=== PATIENT | male | born 1980 | race Two or more races ===

== ENCOUNTER 2025-02-22 17:38 | Emergency (ER) | payer MEDICAID, OTHER ==
[~2025-02-22] VITALS: Ht 182.9 cm; Wt 81.8 kg
[2025-02-22 17:39] VITALS: BP 140/77; PULSE 106; RESP 18; TEMP 97.6; O2SAT 100
--- NOTE | 2025-02-22 18:53 | ED.PDOC ---
General HPI Comments 44-year-old male came to ER right testicular pain. Patient has been ex periencing right flank pains since yesterday, radiating to his right inguinal area, and down his right testicular area. Noted right testicular pain and swelling. Denies any dysuria or gross hematuria. Denies any recent trauma. Chief Complaint: Testicle Pain Time Seen by MD: 18:52 Reviewed notes: Nurses Notes Allergies: Coded Allergies: NO KNOWN ALLERGIES (Unverified , 02/22/25) Home Meds Active Scripts Gabapentin (Once-Daily) (Gabapentin) 300 Mg Tab, 300 MG PO Q6HP PRN, #60 TAB Prov:SOFÍA TESFAYE MD 02/22/25 Ciprofloxacin Hcl (Cipro) 250 Mg Tab, 250 MG PO BID for 10 Days, #20 TAB Prov:SOFÍA TESFAYE MD 02/22/25 Information Source: Patient Mode of Arrival: Ambulatory Severity: Moderate Inability to void: Moderate Timing: Hours Duration: Intermittent Has not urinated for: Minutes Prehospital treatment: None Onset: Spontaneous Location: (R) Flank Location male: R Scrotum associated signs and symptoms: Flank Pain Past Medical History PAST MEDICAL HISTORY: Denies Surgical History: Denies all surgeries Family History Family History: Reviewed,noncontributory to illness Social History Smoker: Non-Smoker Alcohol: Denies ETOH Use Drugs: Denies Drug Use Lives In: Home Constitutional: denies: chills, diaphoresis, fatigue, fever, malaise, sweats, weakness, others EENTM: denies: blurred vision, double vision, ear bleeding, ear discharge, ear drainage, ear pain, ear ringing, eye pain, eye redness, hearing loss, mouth pain, mouth swelling, nasal discharge, nose bleeding, nose congestion, nose pain, photophobia, tearing, throat pain, throat swelling, voice changes, others Respiratory: denies: cough, hemoptysis, orthopnea, SOB at rest, shortness of breath, SOB with excertion, stridor, wheezing, others Cardiovascular: denies: chest pain, dizzy spells, diaphoresis, Dyspnea on exertion, edema, irregular heart beat, left arm pain, lightheadedness, palpitations, PND, syncope, others Gastrointestinal: reports: abdominal pain; denies: abdomen distended, blood streaked bowels, constipated, diarrhea, dysphagia, difficulty swallowing, hematemesis, melena, nausea, poor appetite, poor fluid intake, rectal bleeding, rectal pain, vomiting, others Genitourinary: reports: flank pain (Right), testicle pain, testicle swelling; denies: burning, dysuria, frequency, hematuria, incontinence, penile discharge, penile sore, pain, urgency, others Neurological: denies: dizziness, fainting, headache, left sided numbness, left sided weakness, numbness, paresthesia, pre-existing deficit, right sided numbness, right sided weakness, seizure, speech problems, tingling, tremors, weakness, others Musculoskeletal: denies: back pain, gout, joint pain, joint swelling, muscle pain, muscle stiffness, neck pain, others Integumetry: denies: bruises, change in color, change in hair/nails, dryness, laceration, lesions, lumps, rash, wounds, others Allergic/Immunocompromised: denies: Difficulty Healing, Frequent Infections, Hives, Itching, others Hematologic/Lymphatic: denies: anemia, blood clots, easy bleeding, easy bruising, swollen glands, others Endocrine: denies: excessive hunger, excessive sweating, excessive thirst, excessive urination, flushing, intolerance to cold, intolerance to heat, unexplained weight gain, unexplained weight loss, others Psychiatric: denies: anxiety, bipolar disorder, depression, hopeless, panic disorder, schizophrenia, sleepless, suicidal, others Physical Exam General Appearance: No Apparent Distress, Normal HEENT: Normal ENT Inspection, Pharynx Normal, TMs Normal Neck: Full Range of Motion, Non-Tender, Normal, Normal Inspection Respiratory: Chest Non-Tender, Lungs Clear, No Accessory Muscle Use, No Respiratory Distress, Normal Breath Sounds Cardiovascular: No Edema, No JVD, No Murmur, No Gallop, Normal Peripheral Pulses, Regular Rate/Rhythm Breast Exam: Deferred Gastrointestinal: No Organomegaly, Non Tender, No Pulsatile Mass, Normal Bowel Sounds, Soft Genitalia: Deferred Pelvic: Deferred Rectal: Deferred Extremities: No calf tenderness, Normal capillary refill, Normal inspection, Normal range of motion, Non-tender, No pedal edema Musculoskeletal : Apperance: Normal Neurologic: Alert, biomedical instrument technician II-XII nml as Tested, No Motor Deficits, Normal Affect, Normal Mood, No Sensory Deficits Cerebellar Function: Normal Reflexes: Normal Skin: Dry, Normal Color, Warm Lymphatic: No Adenopathy Was a procedure done? Was a procedure done?: No Differential Diagnosis Kidney stone (Female): N/A Kidney stone (Male): Pyelonephritis, Renal failure, Urinary obstruction, Urolithiasis, Urinary tract infection Urinary Problem (Male): Urethritis, Urinary Retention, Urolithiasis, UTI X-Ray, Labs, Meds, VS Vital Signs Date Time Temp Pulse Resp B/P (MAP) Pulse Ox O2 Delivery O2 Flow Rate FiO2 02/22/25 17:39 97.6 106 18 140/77 100 97.6 Lab Test 02/22/25 19:12 02/22/25 19:04 Range/Units Urine Color Yellow Yellow Urine Clarity Clear Clear Urine pH 8.0 5.0-9.0 Urine Specific [place] 1.034 1.001-1.035 Urine Protein 1+ H Negative Urine Ketones 1+ H Negative Urine Blood Negative Negative /uL Urine Nitrite 2+ H Negative Urine Bilirubin Negative Negative Urine Urobilinogen 3 H Negative mg/dL Urine Leukocyte Esterase 1+ Negative /uL Urine RBC 3 0 - 3 /hpf Urine Microscopic WBC 25 H 0-3 /HPF Urine Squamous Epithelial Cells None seen <5 /hpf Urine Bacteria Few H None Seen /hpf Urine Mucus Few None Seen Urine Glucose Normal Normal mg/dL White Blood Count 19.1 H 4.4-10.8 10^3/uL Red Blood Count 5.26 4.5-5.90 10^6/uL Hemoglobin 15.7 13.5-17.5 g/dL Hematocrit 45.7 41.0-53.0 % Mean Corpuscular Volume 86.9 80.0-100.0 fL Mean Corpuscular Hemoglobin 29.8 28.0-32.0 pg Mean Corpuscular Hemoglobin Concent 34.3 32.0-36.0 g/dL Red Cell Distribution Width 14.5 H 11.8-14.3 % Platelet Count 217 140-450 10^3/uL Mean Platelet Volume 8.3 6.9-10.8 fL Neutrophils (%) (Auto) 88.4 H 37.0-80.0 % Lymphocytes (%) (Auto) 3.0 L 10.0-50.0 % Monocytes (%) (Auto) 8.4 0.0-12.0 % Eosinophils (%) (Auto) 0.0 0.0-7.0 % Basophils (%) (Auto) 0.2 0.0-2.0 % Neutrophils # (Auto) 16.9 H 1.6-8.6 10 ^3/uL Lymphocytes # (Auto) 0.6 0.4-5.4 10 ^3/uL Monocytes # (Auto) 1.6 H 0-1.3 10 ^3/uL Eosinophils # (Auto) 0 0-0.8 10 ^3/uL Basophils # (Auto) 0 0-0.2 10 ^3/uL Nucleated Red Blood Cells 0.1 % Sodium Level 137 136-145 mmol/L Potassium Level 4.4 3.5-5.1 mmol/L Chloride Level 103 98-107 mmol/L Carbon Dioxide Level 25 20-31 mmol/L Anion Gap 9 5-15 Blood Urea Nitrogen 10 9-23 mg/dL Creatinine 1.21 0.700-1.30 mg/dL Glomerular Filtration Rate Calc 77 >90 mL/min BUN/Creatinine Ratio 8.3 L 10.0-20.0 Serum Glucose 123 H 74-106 mg/dL Calcium Level 9.2 8.7-10.4 mg/dL ULTRASOUND OF SCROTUM AND CONTENTS. INDICATION: testicle pain COMPARISON: None TECHNIQUE: Multiple real-time grayscale sonographic and color and duplex Doppler images of the scrotum and its contents were obtained. FINDINGS: RIGHT TESTICLE: Measures 5 x 3.7 x 3.4 cm. There is a right-sided hydrocele with a volume of 110 mL. Right epididymis measures 21.3 mm and is mildly enlarged and hypervascular. LEFT TESTICLE: Measures 3.7 X 3.3 X 3.6 CM cm. Both testicles demonstrate homogeneous echotexture without evidence of focal lesions. The right epididymal head measures 21.3 MM cm. The left epididymal head measures 14.5 MM cm. RIGHT EPIDIDYMIS IS MILDLY ENLARGED AND HYPERVASCULAR may REPRESENT EPIDIDYMITIS CORRELATE WITH THE CLINICAL SETTING. Subsequent color and duplex Doppler interrogation of the testes demonstrated symmetric normal vascular flow to both testicles. MILD HYPEREMIA NOTED TO THE RIGHT EPIDIDYMIS IS MILDLY ENLARGED may REPRESENT MILD EPIDIDYMITIS CORRELATE WITH CLINICAL SETTING. IMPRESSION: 1. RIGHT TESTICLE MEASURES 5 CM. LEFT TESTICLE MEASURES 3.7 CM. 2. Right-sided hydrocele measuring 110 mL 3. Mildly enlarged right epididymis measuring 21.3 mm which appeared mildly hyper hypervascular. Correlate clinically for possible epididymitis. Time of 1ST Reevaluation: 18:50 Reevaluation 1ST: Unchanged Patient Education/Counseling: Diagnosis, Treatment Family Education/Counseling: No Family Present SEPSIS Sepsis Screen Date sepsis recognized/suspect: Feb 22, 2025 Time Sepsis recognized/suspect: 1739 Recent Procedure: No On Antibiotic Therapy: No Respiratory Rate >20: No Heart Rate >90: Yes Temp<36 C (96.8 F) or >38.3 C: No SBP <90 or MAP <65 mmHG: No New Acute Mental Status Change: No Is the patient on CPAP, BIPAP,: No Physician Orders Testicular Ultrasound (02/22/25 18:09) Vital Signs Date Time Temp Pulse Resp B/P (MAP) Pulse Ox O2 Delivery O2 Flow Rate FiO2 02/22/25 17:39 97.6 106 18 140/77 100 97.6 Laboratory Tests Test 02/22/25 19:04 White Blood Count 19.1 10^3/uL (4.4-10.8) H Departure 1 Departure Time of Disposition: 20:40 Impression: Primary Impression: Right epididymitis Disposition: 01 HOME / SELF CARE / HOMELESS Condition: Stable e-Prescriptions Gabapentin (Once-Daily) (Gabapentin) 300 Mg Tab 300 MG PO Q6HP PRN, #60 TAB Prov: SOFÍA TESFAYE MD 02/22/25 Ciprofloxacin Hcl (Cipro) 250 Mg Tab 250 MG PO BID for 10 Days, #20 TAB Prov: SOFÍA TESFAYE MD 02/22/25 Discharged With: Self Critical Care Note Critical Care Time?: No Stability Stability form required: No Heart Score Heart Score: Heart Score Response (Comments) Value History N/A 0 EKG N/A 0 Age N/A 0 Risk Factors N/A 0 Troponin N/A 0 Total 0 I personally scribed for SOFÍA TESFAYE MD ([email or web address]) on 02/22/25 at 18:53. Electronically submitted by Rajat Bonilla ([email or web address]). I personally scribed for SOFÍA TESFAYE MD ([email or web address]) on 02/22/25 at 19:13. Electronically submitted by Rajat Bonilla ([email or web address]). SOFÍA TESFAYE MD Feb 22, 2025 18:53
--- NOTE | 2025-02-22 19:03 | DVH ---
ULTRASOUND OF SCROTUM AND CONTENTS. INDICATION: testicle pain COMPARISON: None TECHNIQUE: Multiple real-time grayscale sonographic and color and duplex Doppler images of the scrotu m and its contents were obtained. FINDINGS: RIGHT TESTICLE: Measures 5 x 3.7 x 3.4 cm. There is a right-sided hydrocele with a volume of 110 mL. Right epididymis measures 21.3 mm and is mildly enlarged and hypervascular. LEFT TESTICLE: Measures 3.7 X 3.3 X 3.6 CM cm. Both testicles demonstrate homogeneous echotexture without evidence of focal lesions. The right epididymal head measures 21.3 MM cm. The left epididymal head measures 14.5 MM cm. RIGHT EPIDIDYMIS IS MILDLY ENLARGED AND HYPERVASCULAR may REPRESENT EPIDIDYMITIS CORRELATE WITH THE C LINICAL SETTING. Subsequent color and duplex Doppler interrogation of the testes demonstrated symmetric normal vascula r flow to both testicles. MILD HYPEREMIA NOTED TO THE RIGHT EPIDIDYMIS IS MILDLY ENLARGED may REPRESENT MILD EPIDIDYMITIS CORRE LATE WITH CLINICAL SETTING. IMPRESSION: 1. RIGHT TESTICLE MEASURES 5 CM. LEFT TESTICLE MEASURES 3.7 CM. 2. Right-sided hydrocele measuring 110 mL 3. Mildly enlarged right epididymis measuring 21.3 mm which appeared mildly hyper hypervascular. Cor relate clinically for possible epididymitis.
[2025-02-22] MEDS ORDERED: CIPR-273 PO (19:17)
[2025-02-22] MEDS ORDERED: GABA300T4 PO (19:17)
[2025-02-22 19:46] LABS: Hematocrit 45.7 % (41.0-53.0); Hemoglobin 15.7 g/dL (13.5-17.5); Mean Corpuscular Hemoglobin 29.8 pg (28.0-32.0); Mean Corpuscular Volume 86.9 fL (80.0-100.0); Nucleated Red Blood Cells % 0.1 %
[2025-02-22 19:50] LABS: Anion Gap 9 (5-15); Carbon Dioxide 25 mmol/L (20-31); Chloride 103 mmol/L (98-107); Potassium 4.4 mmol/L (3.5-5.1); Sodium 137 mmol/L (136-145)
[2025-02-22 19:51] LABS: Calcium 9.2 mg/dL (8.7-10.4)
[2025-02-22 19:57] LABS: BUN/Creatinine Ratio 8.3 (10.0-20.0); Blood Urea Nitrogen 10 mg/dL (9-23)
[2025-02-22 19:58] LABS: Glucose 123 mg/dL (74-106)
[2025-02-22 20:16] LABS: Urine Protein, UAD 1+ (Negative)
[2025-02-22] MEDS: HYDROcodone-ACET 10/325MG TAB PO ONE (21:34)
[2025-02-22] MEDS: AZITHROMYCIN 250 MG TAB PO ONE (21:35)
[2025-02-22] MEDS: cefTRIAXone W LIDOCAINE 500 MG IM IM ONE (21:35)
== END 2025-02-22 21:35 | disposition home or self-care (01) ==
LOC: ER 17:38
DX: N45.1 Epididymitis (principal)
CPT/HCPCS: 36415; 76870; 80048; 81001; 85025; J0696